=== PATIENT | female | born 1990 | race African-American/Black ===

== ENCOUNTER 2020-11-23 07:47 | Emergency (ER) | payer MEDICAID ==
[~2020-11-23] VITALS: Ht 152.4 cm; Wt 82.0 kg
[2020-11-23 07:48] VITALS: BP 124/57
[2020-11-23] MEDS ORDERED: FAMOTIDINE 20MG TABLET PO ONE (09:15)
[2020-11-23] MEDS ORDERED: MAGNESIUM/ALUMINUM HYDROXIDE/SIMETHICONE 30ML UDC PO ONE (09:15)
[2020-11-23] MEDS ORDERED: VISCOUS LIDOCAINE 2% 15 ML UDC PO ONE (09:15)
== END 2020-11-23 10:28 | disposition home or self-care (01) ==
LOC: ER 07:47
DX: R10.13 Epigastric pain (principal); J45.909 Unspecified asthma, uncomplicated
CPT/HCPCS: 93005; 99284